=== PATIENT | female | born 1960 | race Caucasian/White ===

== ENCOUNTER → 2020-07-29 | Outpatient (CLI) | payer MEDICARE | LOC: RAD 10:59 | DX: M54.5 Low back pain (principal); M54.2 Cervicalgia; M25.551 Pain in right hip; M25.552 Pain in left hip; M16.0 Bilateral primary osteoarthritis of hip; Z98.1 Arthrodesis status | CPT/HCPCS: 72050; 72110; 73522 ==

== ENCOUNTER → 2021-01-03 | Outpatient (CLI) | payer OTHER | LOC: KOH-I 11-14 08:00 | DX: M51.16 Intervertebral disc disorders with radiculopathy, lumbar region (principal); M47.26 Other spondylosis with radiculopathy, lumbar region; M48.061 Spinal stenosis, lumbar region without neurogenic claudication; Z98.1 Arthrodesis status | CPT/HCPCS: 72148 ==